=== PATIENT | female | born 1970 | race Caucasian/White ===

== ENCOUNTER 2021-10-20 14:53 | Emergency (ER) | payer OTHER ==
[~2021-10-20] VITALS: Ht 165.1 cm; Wt 102.1 kg
[~2021-10-20 14:53] MED LIST: BUPRENORPHINE1 EAC4 TD; DOXYCYCLINE HY100 MG PO; ELIQUIS5 MG PO; GABAPENTIN300 MG PO; JULEBER 28 DAY1 EACH PO; LAMICTAL200 MG PO; LAMOTRIGINE200 MG PO; LATUDA40 MG PO; LOSARTAN POTASS50 MG PO; METFORMIN HCL500 MG PO; METHYLPREDNISOLO4 M1 PO; NORCO 10-325 T1 EACH PO; VYVANSE70 MG PO
[2021-10-20] MEDS ORDERED: ATORVASTATIN CA40 MG PO (15:26)
[2021-10-20] MEDS ORDERED: ESZOPICLONE1 MG PO (15:26)
[2021-10-20] MEDS ORDERED: EUTHYROX150 MCG PO (15:26)
[2021-10-20] MEDS ORDERED: LITHIUM CARBON300 M2 PO (15:27)
[2021-10-20] MEDS ORDERED: LAMOTRIGINE100 MG PO (15:27)
[2021-10-20] MEDS ORDERED: TIZANIDINE HCL2 MG PO (15:27)
[2021-10-20] MEDS ORDERED: HYDROCODON-ACE1 EA11 PO (15:27)
[2021-10-20] MEDS ORDERED: DILT-XR180 MG PO (15:27)
== END 2021-10-20 15:54 | disposition home or self-care (01) ==
LOC: ED 14:53
DX: G47.00 Insomnia, unspecified (principal); Z79.899 Other long term (current) drug therapy; Z79.891 Long term (current) use of opiate analgesic
CPT/HCPCS: 99283

== ENCOUNTER 2021-10-29 09:43 | Emergency (ER) | payer OTHER ==
[~2021-10-29] VITALS: Ht 165.1 cm; Wt 98.4 kg
[~2021-10-29 09:43] MED LIST changes: +ATORVASTATIN CA40 MG PO; +DILT-XR180 MG PO; +ESZOPICLONE1 MG PO; +EUTHYROX150 MCG PO; +HYDROCODON-ACE1 EA11 PO; +LAMOTRIGINE100 MG PO; +LITHIUM CARBON300 M2 PO; +TIZANIDINE HCL2 MG PO
--- OUTSIDE RECORDS SUMMARY | 2021-10-29 09:46 | XMS ---
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 E.D. VISIT COUNT (12 MO.) 1 [place] [address] Lyle Romo [place] [address] [place] [address] TOTAL 4 NOTE: Visits indicate total known visits. ED/C VISIT TRACKING (12 MO.) 10/29/2021 09:45 [facility] [place] TYPE: Emergency COMPLAINT: - RACING THOUGHTS, PARANOID, CAN'T SLEEP 10/20/2021 14:54 [facility] [place] TYPE: Emergency COMPLAINT: - DIZZINESS DIAGNOSES: - Insomnia, unspecified - Other snf (current) drug therapy - MCC (current) use of opiate analgesic 08/27/2021 15:54 [facility] [place] TYPE: Emergency DIAGNOSES: - Delusional disorders - Disorder of kidney and ureter, unspecified - Mental Health Evaluation - Mental Health Problem - Dehydration 05/23/2021 06:30 [facility] [place] TYPE: Emergency DIAGNOSES: - Unspecified injury of head, initial encounter - Fall - Head Injury - Strain of muscle, fascia and tendon of lower back, initial encounter - Unspecified fall, initial encounter - Vomiting - Strain of muscle, fascia and tendon at neck level, initial encounter - Strain of muscle and tendon of unspecified wall of thorax, initial encounter - "fall, headp pain" INPATIENT VISIT TRACKING (12 MO.) No inpatient visits to display in this time frame [email or web address]
[2021-10-29] MEDS ORDERED: HYDROXYZINE HCL25 MG PO (12:27)
== END 2021-10-29 12:39 | disposition home or self-care (01) ==
LOC: ED 09:43
DX: G47.00 Insomnia, unspecified (principal); F22 Delusional disorders; I10 Essential (primary) hypertension; Z79.899 Other long term (current) drug therapy; Z79.891 Long term (current) use of opiate analgesic
CPT/HCPCS: 80053; 81001; 85025; 99283

== ENCOUNTER 2021-11-01 17:19 | Emergency (ER) | payer OTHER ==
[~2021-11-01] VITALS: Ht 165.1 cm; Wt 98.4 kg
[~2021-11-01 17:19] MED LIST changes: +HYDROXYZINE HCL25 MG PO
[2021-11-01] MEDS ORDERED: VYVANSE70 MG PO (17:57)
--- OUTSIDE RECORDS SUMMARY | 2021-11-02 15:52 | XMS ---
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 Care History Medical/Surgical 10/31/2021 [facility] - Patient is currently established with [facility]. If patient is seen in the ED during business hours. Please contact CHWs at [facility]. Care Recommendation: If this patient has had 5 or more Emergency Department visits in the last 12 months.\\T\\nbsp; Patient will require education on the scope and purpose of the ED as an acute care provider not a Primary Care Provider and should not be utilized for chronic conditions.\\T\\nbsp; These are guidelines and the provider should exercise clinical judgment when providing care. E.D. VISIT COUNT (12 MO.) 1 [facility] 1 Lyle Szymansik 3 [facility] TOTAL 5 NOTE: Visits indicate total known visits. ED/UCC VISIT TRACKING (12 MO.) 11/01/2021 17:20 [facility] [place] TYPE: Emergency COMPLAINT: - MEDICAL CLEARANCE 10/29/2021 09:45 [facility] [place] TYPE: Emergency COMPLAINT: - RACING THOUGHTS, PARANOID, CAN'T SLEEP 10/20/2021 14:54 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
--- NOTE | 2021-11-03 21:16 | EKG ---
[facility] [address] [facility] [place], [place] [address] Signed Normal sinus rhythm Normal ECG No previous ECGs available Confirmed by GRACIA PHIPPS DO ([id number]) on 11/03/2021 9:16:41 PM Electronically Signed By: GRACIA PHIPPS DO 11/03/212115 PATIENT NAME: JAX SANTO Electrocardiogram DATE OF : 74 PHYSICIAN: GRACIA PHIPPS DO REPORT #: [id number] REPORT IS CONFIDENTIAL AND NOT TO BE RELEASED WITHOUT AUTHORIZATION
== END 2021-11-02 20:08 | disposition short-term general hospital (02) ==
LOC: ED 17:19
DX: R45.851 Suicidal ideations (principal); Z20.822 Contact with and (suspected) exposure to COVID-19; I10 Essential (primary) hypertension; G47.00 Insomnia, unspecified; Z79.899 Other long term (current) drug therapy; Z79.891 Long term (current) use of opiate analgesic
CPT/HCPCS: 80053; 81001; 84443; 84703; 85025; 93005; 93010; 99285-25; A9270; A9270-GY; C9803; G0480; U0003

== ENCOUNTER 2022-02-15 07:09 | Emergency (ER) | payer OTHER ==
[~2022-02-15] VITALS: Ht 165.1 cm; Wt 98.4 kg
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
[2022-02-15] MEDS ORDERED: NAPROSYN500 MG PO (07:57)
== END 2022-02-15 09:47 | disposition home or self-care (01) ==
LOC: ED 07:09
DX: S30.0XXA Contusion of lower back and pelvis, initial encounter (principal); R73.03 Prediabetes; Z85.850 Personal history of malignant neoplasm of thyroid; I10 Essential (primary) hypertension; G47.00 Insomnia, unspecified; Z79.899 Other long term (current) drug therapy; Z79.891 Long term (current) use of opiate analgesic; W18.30XA Fall on same level, unspecified, initial encounter
CPT/HCPCS: 72170; 72220; 96372; 99283-25; J1885

== ENCOUNTER 2022-04-20 11:24 | Emergency (ER) | payer OTHER ==
[~2022-04-20] VITALS: Ht 165.1 cm; Wt 98.4 kg
[~2022-04-20 11:24] MED LIST changes: +NAPROSYN500 MG PO
--- OUTSIDE RECORDS SUMMARY | 2022-04-20 11:28 | XMS ---
PreManage Notification: JAX SANTO Security Senior Application Security Consultant Events No recent Security Events currently on file CRITERIA MET - PDMP - [facility] - Has Care Guidelines CARE PROVIDERS [facility] Internal Medicine 10/31/2021-Current PHONE: Unknown Adiel has no Care Guidelines for this patient. Care History Medical/Surgical 11/03/2021 [facility] Patient stated she was trying to supervisor paper testing Rx ordered by Dr. Vasquez. I advised on 10/31/2021 to get scheduled with [facility] for MH therapy. Patient agreed. 10/31/2021 [facility] - Patient is currently established with [facility]. If patient is seen in the ED during business hours. Please contact CHWs at [facility]. Care Recommendation: If this patient has had [...] care. E.D. VISIT COUNT (12 MO.) 1 [facility] 2 Lyle [facility]Vale 5 REAGAN Khan TOTAL 8 NOTE: Visits indicate total known visits. 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 - Contusion of lower back and pelvis, initial encounter - Other termite helper (current) drug therapy 02/02/2022 17:36 [facility] TYPE: Emergency DIAGNOSES: - Suicidal - Suicidal ideations - Altered Mental Status - Delusional disorders 11/01/2021 17:20 [facility] [place] TYPE: Emergency COMPLAINT: - MEDICAL CLEARANCE DIAGNOSES: - Essential (primary) hypertension - Suicidal ideations - 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 inspector (current) 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 of opiate analgesic - Insomnia, unspecified - Other prison (current) drug therapy 10/29/2021 09:45 [facility] [place] TYPE: Emergency COMPLAINT: - RACING THOUGHTS, PARANOID, CAN'T SLEEP DIAGNOSES: - 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 inspector (current) use of opiate analgesic - Insomnia, unspecified - Other prison (current) drug therapy - Delusional disorders - Essential (primary) hypertension 10/20/2021 14:54 [facility] [facility] [place] TYPE: Emergency COMPLAINT: - DIZZINESS DIAGNOSES: - Insomnia, unspecified - Other prison (current) drug therapy - correction (current) use of opiate analgesic 08/27/2021 15:54 Lyle Clarissa [facility] [place] TYPE: Emergency DIAGNOSES: - Delusional disorders - Disorder of kidney and ureter, unspecified - Mental Health Evaluation - Mental Health Problem - Dehydration 05/23/2021 06:30 [facility] [place] TYPE: Emergency DIAGNOSES: - Unspecified [...] INPATIENT VISIT TRACKING (12 MO.) [facility] [place] TYPE: Psychiatric Services DIAGNOSES: - Other chronic pain - Bipolar disorder, current episode depressed, severe, without psychotic features - BIPOLAR II - Hypothyroidism, unspecified - Unspecified psychosis not due to a substance or known physiological condition 11/02/2021 23:05 [facility] [place] TYPE: Psychiatric Services DIAGNOSES: 0. Major [...] reflux disease without esophagitis 2. Hypothyroidism, unspecified [id number]
[2022-04-20] MEDS ORDERED: LITHIUM CARBON150 MG PO (12:03)
[2022-04-20] MEDS ORDERED: LAMOTRIGINE200 MG PO (12:03)
[2022-04-20] MEDS ORDERED: LITHIUM CARBON450 MG PO (12:03)
[2022-04-20] MEDS ORDERED: LEVOTHYROXINE137 MCG PO (12:04)
[2022-04-20] MEDS ORDERED: CAPLYTA42 MG PO (12:06)
[2022-04-20] MEDS ORDERED: CLONAZEPAM0.5 MG PO (22:15)
== END 2022-04-23 07:49 | disposition short-term general hospital (02) ==
LOC: ED 11:24
DX: F22 Delusional disorders (principal); Z20.822 Contact with and (suspected) exposure to COVID-19; F43.10 Post-traumatic stress disorder, unspecified; I10 Essential (primary) hypertension; G47.00 Insomnia, unspecified; Z79.899 Other long term (current) drug therapy
CPT/HCPCS: 36415; 80048; 80053; 80178; 81001; 84439; 84443; 85025; 87088; 87502; 99285; A9270; A9270-GY; G0480; U0003

== ENCOUNTER 2022-10-18 14:51 | Emergency (ER) | payer OTHER ==
[~2022-10-18] VITALS: Ht 165.1 cm; Wt 98.4 kg
[~2022-10-18 14:51] MED LIST changes: +CAPLYTA42 MG PO; +CLONAZEPAM0.5 MG PO; +LEVOTHYROXINE137 MCG PO; +LITHIUM CARBON150 MG PO; +LITHIUM CARBON450 MG PO
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
[2022-10-18] MEDS ORDERED: VYVANSE70 MG PO (15:11)
[2022-10-18] MEDS ORDERED: ATORVASTATIN CA40 MG PO (15:12)
[2022-10-18] MEDS ORDERED: GABAPENTIN300 MG PO (15:12)
[2022-10-18] MEDS ORDERED: NAPROSYN500 MG PO (16:04)
== END 2022-10-18 16:25 | disposition home or self-care (01) ==
LOC: ED 14:51
DX: M54.16 Radiculopathy, lumbar region (principal); I10 Essential (primary) hypertension
CPT/HCPCS: 93971; 99283-25

== ENCOUNTER 2023-04-06 05:50 | Day surgery (SDC) | payer OTHER ==
[2023-04-02 15:50] VITALS: BP 109/68
[~2023-04-06] VITALS: Ht 165.1 cm; Wt 102.3 kg
[~2023-04-06 05:50] MED LIST changes: +COZAAR100 MG PO; +DECARA K PO; +FISH OIL 1,001000 MG PO; +INVEGA SUS156 MG/1 M IM; +LAMICTAL100 MG PO; +NEURONTIN100 MG PO; +PROPRANOLOL HCL60 M1 PO; +RECLIPSEN1 EACH PO; +TRAZODONE HCL150 MG PO
[2023-04-06 06:04] VITALS: BP 108/71
--- NOTE | 2023-04-06 08:02 | NUR ---
04/06/23 0802 Silvia Mariscal 0755 PT ARRIVED TO PACU ON 6L VIA MASK, PT ASLEEP AND RESP EVEN AND UNLABORED. 0801 PT WAKES ON HER OWN AND STARTS TO ROLL OVER, O2 REMOVED AND PT REORIENTED TO PACU.
[2023-04-06 08:46] VITALS: BP 112/79
--- NOTE | 2023-04-06 11:59 | OR ---
[facility] [address] [place], [place] [address] Signed DATE OF OPERATION: 04/06/2023 SURGEON: Lillian Gonzalez MD PREOPERATIVE DIAGNOSES: 1. Mother with colonic polyps in her 50s. 2. Personal history of hyperplastic colonic polyps in 2015 at age 45. 3. Fistulotomy at the 5 o'clock position. POSTOPERATIVE DIAGNOSES: 1. 4 mm polyp at 18 cm (rectosigmoid junction). 2. 4 mm polyp at 25 cm (distal sigmoid colon). 3. Fistulotomy scar at 5 o'clock position. PROCEDURE: Colonoscopy with hot biopsy. ESTIMATED BLOOD LOSS: None. INDICATIONS: Jax is a 53-year-old obese female, asked to see me for a followup colonoscopy. Mother had colonic polyps removed in her 50s. She had hyperplastic polyps removed at age 45 in 2015. I helped her with the fistulotomy at the 5 o'clock position in 2015. She currently has no lower GI complaints. In the office, I gave her a pamphlet on colonoscopy. She understands the nature of the test. There is risk including, but not limited to gas bloating, crampy abdominal pain, bleeding, perforation requiring surgery, and missed diagnosis. We also reviewed the need for monitored anesthesia care as we have previously given her body habitus and her advanced medical issues. She had expressed understanding and wished to proceed. PROCEDURE NOTE: Jax was taken into our endoscopy suite and placed in the left lateral decubitus position. She was given IV sedation with propofol per our nurse steel heater. A digital rectal exam was performed and this was unremarkable. We could see the scar at the 5 o'clock position. She has good sphincter tone. There were no masses. The adult colonoscope was introduced and advanced under direct visualization of camera. It took some abdominal compression or get the scope into the cecum itself. Her prep was quite good. We could easily see the appendiceal orifice and the ileocecal valve. The scope was then slowly withdrawn. We took pictures throughout for photodocumentation. We took Electronically Signed By: LILLIAN GONZALEZ MD 04/06/23 1159 PATIENT NAME: JAX SANTO OPERATIVE REPORT DATE OF : 74 REPORT #: [id number] PHYSICIAN: LILLIAN GONZALEZ MD PCP: SENIA SARAVIA MD REPORT IS CONFIDENTIAL AND NOT TO BE RELEASED WITHOUT AUTHORIZATION [facility] [address] [place], [place] [address] Signed out two tiny polyps as mentioned above. The rectum was unremarkable. Upon retroflexion of scope, there was no additional pathology noted above the anal canal. After this, the gas was suctioned out. The colonoscope removed. Jax tolerated the procedure quite well. RECOMMENDATIONS: I will see Jax back in my office in 7 to 14 days to review her results. I suspect she will stay on the five year plan due to her mother's history. Lillian Gonzalez MD ALB/NORMAL /[id number] cc: MD Senia Cotto MD Copies: LILLIAN GONZALEZ MD ~ Electronically Signed By: LILLIAN GONZALEZ MD 04/06/23 1159 PATIENT NAME: JAX SANTO OPERATIVE REPORT DATE OF : 74 REPORT #: [id number] PHYSICIAN: LILLIAN GONZALEZ MD PCP: SENIA SARAVIA MD REPORT IS CONFIDENTIAL AND NOT TO BE RELEASED WITHOUT AUTHORIZATION
--- NOTE | 2023-04-10 18:22 | PATH ---
[facility] [address] [facility] [place] [address] Signed SPECIMEN(S): A SIGMOID POLYP AT 18 CM SPECIMEN(S): B POLYP AT 25 CM SPECIMEN SOURCE: A. SIGMOID POLYP AT 18 CM B. POLYP AT 25 CM CLINICAL HISTORY: Surveillance; history of polyps and fistula JVR:[id number] FINAL PATHOLOGIC DIAGNOSIS: A. Sigmoid polyp at 18 cm: - Hyperplastic polyp (one fragment). B. Polyp at 25 cm: - Tubular adenoma (one fragment). MICROSCOPIC EXAMINATION: Histologic sections of all submitted blocks are examined by light microscopy. These findings, together with the gross examination, support the pathologic diagnosis. GROSS DESCRIPTION: A. The specimen, labeled and designated "Goold, T," and designated on the requisition "sigmoid colon polyp at 18 cm," is received in formalin and consists of one guido soft tissue fragment that is 0.4 cm in greatest dimension. The specimen is entirely submitted in (A1). B. The specimen, labeled and designated "Goold, T," and designated on the requisition "polyp at 25 cm," is received in formalin and consists of one guido soft tissue fragment that is 0.3 cm in greatest dimension. The specimen is entirely submitted in (B1). FB (under the direct supervision of a pathologist) The Gross Description was prepared using a voice recognition system. The report was reviewed for accuracy; however, sound-alike word errors, addition and/or deletions may occur. If there is any question about this report, please contact Client Services. PERFORMING LABORATORY: The technical component was performed by [facility], [address] [place] [id number] (CLIA# [id number]). Professional interpretation was performed by [facility] PATIENT NAME: JAX SANTO PATHOLOGY DATE OF : 74 REPORT #: [id number] PHYSICIAN: ANAYTE PATHOLOGY PCP: REGINO SARAVIA MD REPORT IS CONFIDENTIAL AND NOT TO BE RELEASED WITHOUT AUTHORIZATION [facility] [address] [place], [place] [address] [place] [address] (CLIA#: [id number]). Diagnostician: Donavan Arriola MD Pathologist Electronically Signed 04/10/2023 Copies: ~ PATIENT NAME: JAX SANTO PATHOLOGY DATE OF : 74 REPORT #: [id number] PHYSICIAN: DERRELL PATHOLOGY PCP: REGINO SARAVIA MD REPORT IS CONFIDENTIAL AND NOT TO BE RELEASED WITHOUT AUTHORIZATION
== END 2023-04-06 09:01 | disposition home or self-care (01) ==
LOC: OPS 05:50 → DS 05:50 → OPS 07:30 → DS 07:30 → OPS 09:01
PROVIDERS: ATTEND Colon & Rectal Surgery
PROC: 0DBE8ZZ Excision of Large Intestine, Via Natural or Artificial Opening Endoscopic (ICD-10-PCS; principal; 2023-04-06 07:30)
DX: Z12.11 Encounter for screening for malignant neoplasm of colon (principal); Z83.71 Family history of colonic polyps; Z86.010 Personal history of colon polyps; E66.9 Obesity, unspecified; G47.33 Obstructive sleep apnea (adult) (pediatric); I10 Essential (primary) hypertension; E03.9 Hypothyroidism, unspecified; G89.29 Other chronic pain; Z68.37 Body mass index [BMI] 37.0-37.9, adult; D12.5 Benign neoplasm of sigmoid colon
CPT/HCPCS: J2250; J2704; J3010; J7121